=== PATIENT | female | born 1990 | race Caucasian/White ===

== ENCOUNTER 2018-12-31 11:32 | Emergency (ER) | payer BC ==
[2018-12-31 13:30] LABS: URINE BLOOD (Dip) POC 3+ (NEGATIVE); URINE GLUCOSE (Dip) POC Negative (NEGATIVE); URINE KETONES (Dip) POC 2+ (NEGATIVE); URINE LEUKOCYTE EST (Dip) POC 1+ (NEGATIVE); URINE NITRITE (Dip) POC Negative (NEGATIVE); URINE TOTAL PROTEIN POC 1+ (NEGATIVE)
[2018-12-31] MEDS: ACETAMINOPHEN 500 MG TAB PO (13:35)
[2018-12-31] MEDS: IBUPROFEN 800 MG TAB PO (13:36)
== END 2018-12-31 13:57 | disposition home or self-care (01) ==
LOC: FTE 11:32
DX: J11.1 Influenza due to unidentified influenza virus with other respiratory manifestations (principal)
CPT/HCPCS: 81003; 81025; 99283